=== PATIENT | male | born 1960 | race Two or more races ===

== ENCOUNTER 2018-05-26 19:25 | Observation (INO) | payer BC ==
[~2018-05-26] VITALS: Ht 172.7 cm; Wt 116.6 kg
[~2018-05-26 19:25] MED LIST: DOCU100C28; FENO160T12 PO; LEVO250T7; LIDO15CR; METO50TA6 PO; METR-84; PANT40TA3 PO
[2018-05-26] MEDS ORDERED: ASPIRIN 325 MG TABLET PO ONE (20:00)
[2018-05-26 20:01] LABS: BASO # 0.1 x10^3/uL (0.0-0.2); BASO % 1 % (0-3); EOS # 0.3 x10^3/uL (0.0-0.7); EOS % 3 % (0-3); HEMATOCRIT 43.1 % (39.0-53.0); HEMOGLOBIN 15.3 g/dL (13.0-17.5); LYMPH # 4.7 x10^3/uL (1.0-4.8); LYMPH % 49 % (24-48); MEAN CORPUSCULAR HEMOGLOBIN 32 pg (25-35); MEAN CORPUSCULAR HGB CONC 35 g/dL (31-37); MEAN CORPUSCULAR VOLUME 91 fL (79-100); MONO # 0.7 x10^3/uL (0.0-1.1); MONO % 8 % (0-9); NEUT # 3.7 x10^3uL (1.8-7.7); NEUT % 39 % (31-73); PLATELET COUNT 290 x10^3/uL (140-400); RED BLOOD COUNT 4.75 x10^6/uL (4.30-5.70); RED CELL DISTRIBUTION WIDTH 13.7 % (11.5-14.5); WHITE BLOOD COUNT 9.5 x10^3/uL (4.0-11.0)
[2018-05-26 20:07] LABS: CALCIUM 9.5 mg/dL (8.5-10.1); CREATININE 1.4 mg/dL (0.7-1.3); GFR 52.2; POTASSIUM 3.9 mmol/L (3.5-5.1)
[2018-05-26 20:10] LABS: PROTHROMBIN TIME PATIENT 12.7 SEC (11.7-14.0)
[2018-05-26 20:13] LABS: D-DIMER 0.43 ug/mlFEU (0.00-0.50)
[2018-05-26 20:15] LABS: MAGNESIUM 1.9 mg/dL (1.8-2.4); TOTAL BILIRUBIN 0.3 mg/dL (0.2-1.0); TOTAL PROTEIN 8.2 g/dL (6.4-8.2)
--- NOTE | 2018-05-26 20:25 | PHYS DOC ---
Past Medical History Past Medical History: CAD, GERD, High Cholesterol, Hypertension Past Surgical History: No Surgical History Smoking: Quit Greater Than 1 Year Alcohol Use: None Drug Use: None Adult General Chief Complaint Chief Complaint: Palpitations HPI HPI Patient is a 57-year-old male that presents with episodic squeezing chest pain that started this morning. Patient states the pain is in the center of his chest , the episodes last about 15 minutes, they are alleviated with rest and he denies radiation of the pain. He has not taken any medication for the chest pain today, he does not take a daily aspirin. Patient has a history of hypertension and hypercholesterolemia. Patient has a family history of heart attack in his father, and PE in his mother. Patient has a history of smoking tobacco, quit 20 years ago. At its worst the pain is a 6 out of 10. Patient denies shortness of breath, nausea, vomiting, dizziness, and cough. Heart score 4/5 with history of smoking, hypercholesterolemia, hypertension, family history of heart attack. Patient denies trauma. Review of Systems Review of Systems Constitutional: Denies fever or chills [] Eyes: Denies change in visual acuity, redness, or eye pain [] HENT: Denies nasal congestion or sore throat [] Respiratory: Denies cough or shortness of breath [] Cardiovascular: Reports chest pain and palpitations GI: Denies abdominal pain, nausea, vomiting, or diarrhea [] : Denies dysuria or hematuria [] Musculoskeletal: Denies back pain or joint pain [] Integument: Denies rash or skin lesions [] Neurologic: Denies headache, focal weakness or sensory changes [] Complete systems were reviewed and found to be within normal limits, except as documented in this note. Current Medications Current Medications Current Medications Medications (Trade) Dose Ordered Sig/[facility] Start Time Stop Time Status Last Admin Dose Admin Aspirin (Victoria Aspirin) 325 mg 1X ONCE 05/26/18 20:00 05/26/18 20:01 DC 05/26/18 19:48 325 MG Allergies Allergies Allergies Coded Allergies Type Severity Reaction Last Updated Verified Penicillins Allergy Intermediate 05/26/18 Yes Physical Exam Physical Exam Constitutional: Well developed, well nourished, no acute distress, non-toxic appearance. [] HENT: Normocephalic, atraumatic, nose normal. [] Eyes: Conjunctiva normal, no discharge. [] Neck: Normal range of motion, no tenderness, supple. [] Cardiovascular: Heart rate regular rhythm, no murmur [] Lungs & Thorax: Bilateral breath sounds clear to auscultation [] Abdomen: Bowel sounds normal, soft, no tenderness. [] Skin: Warm, dry, no erythema, no rash. [] Extremities: No tenderness, no cyanosis, no clubbing, ROM intact, no edema. [] Neurologic: Alert and oriented X 3, no focal deficits noted. [] Psychologic: Affect normal, judgement normal, mood normal. [] Current Patient Data Vital Signs Vital Signs Date Time Temp Pulse Resp B/P (MAP) Pulse Ox O2 Delivery O2 Flow Rate FiO2 05/26/18 20:30 73 16 118/81 (93) 97 Room Air 05/26/18 19:35 98.6 98.6 Lab Values Laboratory Tests Test 05/26/18 19:45 White Blood Count 9.5 x10^3/uL (4.0-11.0) Red Blood Count 4.75 x10^6/uL (4.30-5.70) Hemoglobin 15.3 g/dL (13.0-17.5) Hematocrit 43.1 % (39.0-53.0) Mean Corpuscular Volume 91 fL (79-100) Mean Corpuscular Hemoglobin 32 pg (25-35) Mean Corpuscular Hemoglobin Concent 35 g/dL (31-37) Red Cell Distribution Width 13.7 % (11.5-14.5) Platelet Count 290 x10^3/uL (140-400) Neutrophils (%) (Auto) 39 % (31-73) Lymphocytes (%) (Auto) 49 % (24-48) H Monocytes (%) (Auto) 8 % (0-9) Eosinophils (%) (Auto) 3 % (0-3) Basophils (%) (Auto) 1 % (0-3) Neutrophils # (Auto) 3.7 x10^3uL (1.8-7.7) Lymphocytes # (Auto) 4.7 x10^3/uL (1.0-4.8) Monocytes # (Auto) 0.7 x10^3/uL (0.0-1.1) Eosinophils # (Auto) 0.3 x10^3/uL (0.0-0.7) Basophils # (Auto) 0.1 x10^3/uL (0.0-0.2) Prothrombin Time 12.7 SEC (11.7-14.0) Prothrombin Time INR 1.0 (0.8-1.1) PTT 25 SEC (24-38) D-Dimer (Chantelle) 0.43 ug/mlFEU (0.00-0.50) Sodium Level 143 mmol/L (136-145) Potassium Level 3.9 mmol/L (3.5-5.1) Chloride Level 106 mmol/L (98-107) Carbon Dioxide Level 30 mmol/L (21-32) Anion Gap 7 (6-14) Blood Urea Nitrogen 25 mg/dL (8-26) Creatinine 1.4 mg/dL (0.7-1.3) H Estimated GFR (Cockcroft-Gault) 52.2 BUN/Creatinine Ratio 18 (6-20) Glucose Level 95 mg/dL (70-99) Calcium Level 9.5 mg/dL (8.5-10.1) Magnesium Level 1.9 mg/dL (1.8-2.4) Total Bilirubin 0.3 mg/dL (0.2-1.0) Aspartate Amino Transferase (AST) 22 U/L (15-37) Alanine Aminotransferase (ALT) 39 U/L (16-63) Alkaline Phosphatase 61 U/L (46-116) Creatine Kinase 101 U/L (39-308) Creatine Kinase MB (Mass) 0.8 ng/mL (0.0-3.6) Creatine Kinase MB Relative Index 0.8 % (0-4) Troponin I Quantitative < 0.017 ng/mL (0.000-0.055) YV-Sqt-M-Type Natriuretic Peptide 126 pg/mL (0-124) H Total Protein 8.2 g/dL (6.4-8.2) Albumin 4.0 g/dL (3.4-5.0) Albumin/Globulin Ratio 1.0 (1.0-1.7) Lipase 240 U/L (73-393) Laboratory Tests 05/26/18 19:45 Laboratory Tests 05/26/18 19:45 EKG EKG @ 1937 Sinus rhythm at 90 BPM, prolonged SD interval at 212ms, no ST elevation Radiology/Procedures Radiology/Procedures CXR @2114 Chest x-ray without acute process preliminary report by ED physician Course & Med Decision Making Course & Med Decision Making Pertinent Labs and Imaging studies reviewed. (See chart for details) Patient is a 57-year-old male that presented with 1 day of chest pain and palpitations that began this morning. Patient has a history of HTN, hypercholesterolemia, father had a heart attack, and he has a history of smoking. Labs obtained and posted to chart. EKG WNL, no ST elevation. Troponin and D-dimer WNL. Preliminary read of CXR shows no acute process. Heart score of 4. Discussed admission for observation and cardiology evaluation with stress test because of concerning history. Patient requiring admission for further evaluation and treatment. Discussed with Dr. Briggs (hospitalist) who is in agreement with admission. Discussed findings and plan with patient and family, who acknowledge understanding and agreement. Dragon Disclaimer Dragon Disclaimer This electronic medical record was generated, in whole or in part, using a voice recognition dictation system. Departure Departure Impression: Primary Impression: Chest pain Disposition: ADMITTED INPATIENT Admitting Physician: Other (Obizoar) Condition: STABLE Referrals: CAREN RESTREPO MD (PCP) Problem Qualifiers Primary Impression: Chest pain Chest pain type: unspecified Qualified Codes: R07.9 - Chest pain, unspecified APARNA VALVERDE DO May 26, 2018 20:25
[2018-05-26] MEDS ORDERED: IV NORMAL SALINE 1000ML BAG 1,000 ML IV ONE (21:00)
[2018-05-26] MEDS ORDERED: fentaNYL PF VIAL 100 MCG/2 ML VIAL IV PRN (21:15)
[2018-05-26] MEDS ORDERED: ONDANSETRON PF 4 MG/2 ML VIAL. IV PRN (21:15)
--- NOTE | 2018-05-26 21:54 | RAD ---
Exam performed: 2 views of the chest. Indication: Chest pain today Date of Service: 05/26/2018 8:39 PM . Comparison : Two-view chest from 04/10/2008 Findings: PA and lateral radiographs of the chest reveal a normal cardiomediastinal contour. The lungs are clear. No pleural fluid is seen. The visualized osseous structures are unremarkable. Impression: No acute cardiopulmonary process seen. Electronically signed by: Le Vaughan MD (05/26/2018 9:49 PM) [facility]
[2018-05-26 22:32] VITALS: BP 122/77
[2018-05-26] MEDS ORDERED: FINA5TAB4 PO (23:11)
[2018-05-26] MEDS ORDERED: TAMS0.4C2 PO (23:11)
[2018-05-27 03:00] VITALS: BP 105/67
[2018-05-27 05:53] LABS: CHOLESTEROL/HDL RATIO 4.4
--- NOTE | 2018-05-27 07:29 | EKG ---
[facility] [address] [place] [address] Test Date: 2018-05-26 Test Time: 19:37:24 Pat Name: AGNES MARAVILLA Department: Room: Gender: M [employer]: : 1960 Requested By: APARNA VALVERDE Order Number: [id number] Reading MD: Measurements Intervals [place] Rate: 90 P: 40 MI: 212 QRS: 14 QRSD: 78 T: 21 QT: 332 QTc: 410 Interpretive Statements SINUS RHYTHM PROLONGED MI INTERVAL QRS(T) CONTOUR ABNORMALITY CONSIDER ANTEROSEPTAL MYOCARDIAL DAMAGE ABNORMAL ECG RI6.01 No previous ECG available for comparison
[2018-05-27 07:36] VITALS: BP 118/71
--- NOTE | 2018-05-27 08:15 | PDOC2 ---
CARDIOLOGY CONSULT NOTE CHEIF COMPLAINT: CHest pain HPI: Presented with substernal chest pain with pressure lasting 10 minutes for the mostly the morning. He has had associated palpitations. No diaphoresis, n/v. No prior abnormality on prior holter monitoring. No syncope, no LE edema. No exertional dyspnea. Baseline functional capacity NYHA class 1. No severe limitations. He is able to do things like mow the yard and shovel snow. Had flu he thinks 1 month ago. Also recently seen at and apparently advised to obtain a test (unsure what) and he did not due to lack of money. PMHX: 1. BPH 2. HTN 3. Hypertriglyceridemia SOCHX: Remote smoker. No alcohol or illicits. FAMHX: Dad - AL Mother - P.E CURRENT MEDS: Fenofibrate Metoprolol 50mg bid Protonix. Tamsulosin/Finasteride ALLERGIES: Allergies Coded Allergies Type Severity Reaction Last Updated Verified Penicillins Allergy Intermediate 05/26/18 Yes ROS: Negative for 02/18 systems reviewed unless otherwise noted above in HPI. PHYSICAL EXAM: Vital Signs: Vital Signs Date Time Temp Pulse Resp B/P (MAP) Pulse Ox O2 Delivery O2 Flow Rate FiO2 05/27/18 07:36 98.2 66 18 118/71 (87) 98 Room Air 98.2 I & O Intake and Output 05/27/18 07:01 Intake Total 1000 ml Balance 1000 ml Intake Oral 0 ml IV Total 1000 ml # Voids 2 Physical Exam: GEN.: No apparent distress. Alert and oriented. HEENT: Head is normocephalic, atraumatic NECK: Supple. LUNGS: Clear to auscultation. HEART: RRR, distant heart sounds. , S1, S2 present. Peripheral pulses intact ABDOMEN: Soft, nontender. Positive bowel sounds. EXTREMITIES: Without any cyanosis. NEUROLOGIC: Normal speech, normal tone PSYCHIATRIC: Normal affect, normal mood. SKIN: No ulcerations DIAGNOSTIC TESTING: EKG, Trop, BNP wnl. CXR wnl. ASSESSMENT: 1. Atypical chest pain - No findings on EKG/Trop or CXR. 2. Multiple cardiac risk factors including obesity, HTN, DLP, and family history. PLAN: 1. Check echo. will plan for outpt event monitor. 2. Consider outpt stress test. 3. Continue home meds. Pls call with questions. Ok to DC later today after echo KIM BEJARANO MD May 27, 2018 08:15
[2018-05-27] MEDS ORDERED: DOCUSATE SODIUM 100 MG CAPSULE. PO PRN (11:00)
[2018-05-27] MEDS ORDERED: traMADol 50 MG TABLET PO PRN (11:00)
[2018-05-27] MEDS ORDERED: ONDANSETRON PF 4 MG/2 ML VIAL. IV PRN (11:00)
[2018-05-27] MEDS ORDERED: hydrALAZINE 20 MG/ML VIAL. IVP PRN (11:00)
[2018-05-27] MEDS ORDERED: MORPHINE SULFATE 4 MG/ML VIAL. IV PRN (11:00)
[2018-05-27] MEDS ORDERED: ACETAMINOPHEN 325 MG TABLET. PO PRN (11:00)
[2018-05-27 11:15] VITALS: BP 106/71
--- NOTE | 2018-05-27 12:46 | PDOC1 ---
History and Physical Date of Admission Date of Admission 05/27/18 Identification/Chief Complaint Chief Complaint chest pain, palpitation Source Source: Chart review, Patient History of Present Illness History of Present Illness HPI HPI Patient is a 57-year-old male came for chest pain and palpitation yesterday. pt said he was sitting , the felt palpitation, and chest pain, lasting for 10min , 6/10. The pain was dull, no radiation, mild sob and diaphoresis , no N/V. then he had another one time palpitation wo chest pain, then came to ER. no chest pain overniight. CE neg. EKG ok. had GERD, on protonix, but denies feels like GERD. Past Medical History Cardiovascular: HTN Past Surgical History Past Surgical History: No pertinent history Family History Family History: Hypertension Social History Smoke: Quit ALCOHOL: social Drugs: None Current Problem List Problem List Problems Medical Problems: (1) Chest pain Status: Acute Current Medications Current Medications Current Medications Medications (Trade) Dose Ordered Sig/[facility]ini Start Time Stop Time Status Last Admin Dose Admin Acetaminophen (Tylenol) 650 mg PRN Q6HRS PRN 05/27/18 11:00 Aspirin (Victoria Aspirin) 325 mg 1X ONCE 05/26/18 20:00 05/26/18 20:01 DC 05/26/18 19:48 325 MG Docusate Sodium (Colace) 100 mg PRN DAILY PRN 05/27/18 11:00 Fentanyl Citrate (Fentanyl 2ml Vial) 50 mcg PRN Q2HRS PRN 05/26/18 21:15 Hydralazine HCl (Apresoline Inj) 10 mg PRN Q4HRS PRN 05/27/18 11:00 Morphine Sulfate (Morphine Sulfate) 2 mg PRN Q2HR PRN 05/27/18 11:00 Ondansetron HCl (Zofran) 4 mg PRN Q6HRS PRN 05/27/18 11:00 Sodium Chloride 1,000 ml @ 1,000 mls/hr 1X ONCE 05/26/18 21:00 05/26/18 21:59 DC 05/26/18 19:49 1,000 MLS/HR Tramadol HCl (Ultram) 50 mg PRN Q6HRS PRN 05/27/18 11:00 Allergies Allergies Allergies Coded Allergies Type Severity Reaction Last Updated Verified Penicillins Allergy Intermediate 05/26/18 Yes ROS Review of System CONSTITUTIONAL: No fever or chills EYES: No recent changes SKIN: No rash or itching CARDIOVASCULAR: No chest pain, syncope, palpitations, or edema RESPIRATORY: No SOB or cough GASTROINTESTINAL: No nausea, vomiting or abdominal pain NEUROLOGICAL: No headaches or weakness ENDOCRINE: No cold or heat intolerance GENITOURINARY: No urgency or frequency of urination MUSCULOSKELETAL: No back pain or joint pain LYMPHATICS: No enlarged lymph nodes PSYCHIATRIC: No anxiety or depression Physical Exam Physical Exam GEN.: No apparent distress. Alert and oriented. HEENT: Head is normocephalic, atraumatic NECK: Supple. LUNGS: Clear to auscultation. HEART: RRR, S1, S2 present. Peripheral pulses intact ABDOMEN: Soft, Positive bowel sounds. mild lower abd tenderness. EXTREMITIES: Without any cyanosis. NEUROLOGIC: Normal speech, normal tone PSYCHIATRIC: Normal affect, normal mood. SKIN: No ulcerations Vitals Vitals Vital Signs Date Time Temp Pulse Resp B/P (MAP) Pulse Ox O2 Delivery O2 Flow Rate FiO2 05/27/18 11:15 98.1 51 18 106/71 (83) 99 Room Air 98.1 Labs Labs Laboratory Tests Test 05/26/18 19:45 05/27/18 02:00 05/27/18 04:45 White Blood Count 9.5 x10^3/uL (4.0-11.0) Red Blood Count 4.75 x10^6/uL (4.30-5.70) Hemoglobin 15.3 g/dL (13.0-17.5) Hematocrit 43.1 % (39.0-53.0) Mean Corpuscular Volume 91 fL (79-100) Mean Corpuscular Hemoglobin 32 pg (25-35) Mean Corpuscular Hemoglobin Concent 35 g/dL (31-37) Red Cell Distribution Width 13.7 % (11.5-14.5) Platelet Count 290 x10^3/uL (140-400) Neutrophils (%) (Auto) 39 % (31-73) Lymphocytes (%) (Auto) 49 % (24-48) Monocytes (%) (Auto) 8 % (0-9) Eosinophils (%) (Auto) 3 % (0-3) Basophils (%) (Auto) 1 % (0-3) Neutrophils # (Auto) 3.7 x10^3uL (1.8-7.7) Lymphocytes # (Auto) 4.7 x10^3/uL (1.0-4.8) Monocytes # (Auto) 0.7 x10^3/uL (0.0-1.1) Eosinophils # (Auto) 0.3 x10^3/uL (0.0-0.7) Basophils # (Auto) 0.1 x10^3/uL (0.0-0.2) Prothrombin Time 12.7 SEC (11.7-14.0) Prothromb Time International Ratio 1.0 (0.8-1.1) Activated Partial Thromboplast Time 25 SEC (24-38) D-Dimer (Chantelle) 0.43 ug/mlFEU (0.00-0.50) Sodium Level 143 mmol/L (136-145) Potassium Level 3.9 mmol/L (3.5-5.1) Chloride Level 106 mmol/L (98-107) Carbon Dioxide Level 30 mmol/L (21-32) Anion Gap 7 (6-14) Blood Urea Nitrogen 25 mg/dL (8-26) Creatinine 1.4 mg/dL (0.7-1.3) Estimated GFR (Cockcroft-Gault) 52.2 BUN/Creatinine Ratio 18 (6-20) Glucose Level 95 mg/dL (70-99) Calcium Level 9.5 mg/dL (8.5-10.1) Magnesium Level 1.9 mg/dL (1.8-2.4) Total Bilirubin 0.3 mg/dL (0.2-1.0) Aspartate Amino Transf (AST/SGOT) 22 U/L (15-37) Alanine Aminotransferase (ALT/SGPT) 39 U/L (16-63) Alkaline Phosphatase 61 U/L (46-116) Creatine Kinase 101 U/L (39-308) Creatine Kinase MB (Mass) 0.8 ng/mL (0.0-3.6) Creatine Kinase MB Relative Index 0.8 % (0-4) Troponin I Quantitative < 0.017 ng/mL (0.000-0.055) < 0.017 ng/mL (0.000-0.055) 0.020 ng/mL (0.000-0.055) XK-Bcf-C-Type Natriuretic Peptide 126 pg/mL (0-124) Total Protein 8.2 g/dL (6.4-8.2) Albumin 4.0 g/dL (3.4-5.0) Albumin/Globulin Ratio 1.0 (1.0-1.7) Lipase 240 U/L (73-393) Triglycerides Level 156 mg/dL (0-150) Cholesterol Level 158 mg/dL (0-200) LDL Cholesterol, Calculated 91 mg/dL (0-100) VLDL Cholesterol, Calculated 31 mg/dL (0-40) Non-HDL Cholesterol Calculated 122 mg/dL (0-129) HDL Cholesterol 36 mg/dL (40-60) Cholesterol/HDL Ratio 4.4 Laboratory Tests Test 05/26/18 19:45 05/27/18 02:00 05/27/18 04:45 White Blood Count 9.5 x10^3/uL (4.0-11.0) Red Blood Count 4.75 x10^6/uL (4.30-5.70) Hemoglobin 15.3 g/dL (13.0-17.5) Hematocrit 43.1 % (39.0-53.0) Mean Corpuscular Volume 91 fL (79-100) Mean Corpuscular Hemoglobin 32 pg (25-35) Mean Corpuscular Hemoglobin Concent 35 g/dL (31-37) Red Cell Distribution Width 13.7 % (11.5-14.5) Platelet Count 290 x10^3/uL (140-400) Neutrophils (%) (Auto) 39 % (31-73) Lymphocytes (%) (Auto) 49 % (24-48) Monocytes (%) (Auto) 8 % (0-9) Eosinophils (%) (Auto) 3 % (0-3) Basophils (%) (Auto) 1 % (0-3) Neutrophils # (Auto) 3.7 x10^3uL (1.8-7.7) Lymphocytes # (Auto) 4.7 x10^3/uL (1.0-4.8) Monocytes # (Auto) 0.7 x10^3/uL (0.0-1.1) Eosinophils # (Auto) 0.3 x10^3/uL (0.0-0.7) Basophils # (Auto) 0.1 x10^3/uL (0.0-0.2) Prothrombin Time 12.7 SEC (11.7-14.0) Prothromb Time International Ratio 1.0 (0.8-1.1) Activated Partial Thromboplast Time 25 SEC (24-38) D-Dimer (Chantelle) 0.43 ug/mlFEU (0.00-0.50) Sodium Level 143 mmol/L (136-145) Potassium Level 3.9 mmol/L (3.5-5.1) Chloride Level 106 mmol/L (98-107) Carbon Dioxide Level 30 mmol/L (21-32) Anion Gap 7 (6-14) Blood Urea Nitrogen 25 mg/dL (8-26) Creatinine 1.4 mg/dL (0.7-1.3) Estimated GFR (Cockcroft-Gault) 52.2 BUN/Creatinine Ratio 18 (6-20) Glucose Level 95 mg/dL (70-99) Calcium Level 9.5 mg/dL (8.5-10.1) Magnesium Level 1.9 mg/dL (1.8-2.4) Total Bilirubin 0.3 mg/dL (0.2-1.0) Aspartate Amino Transf (AST/SGOT) 22 U/L (15-37) Alanine Aminotransferase (ALT/SGPT) 39 U/L (16-63) Alkaline Phosphatase 61 U/L (46-116) Creatine Kinase 101 U/L (39-308) Creatine Kinase MB (Mass) 0.8 ng/mL (0.0-3.6) Creatine Kinase MB Relative Index 0.8 % (0-4) Troponin I Quantitative < 0.017 ng/mL (0.000-0.055) < 0.017 ng/mL (0.000-0.055) 0.020 ng/mL (0.000-0.055) EA-Feq-K-Type Natriuretic Peptide 126 pg/mL (0-124) Total Protein 8.2 g/dL (6.4-8.2) Albumin 4.0 g/dL (3.4-5.0) Albumin/Globulin Ratio 1.0 (1.0-1.7) Lipase 240 U/L (73-393) Triglycerides Level 156 mg/dL (0-150) Cholesterol Level 158 mg/dL (0-200) LDL Cholesterol, Calculated 91 mg/dL (0-100) VLDL Cholesterol, Calculated 31 mg/dL (0-40) Non-HDL Cholesterol Calculated 122 mg/dL (0-129) HDL Cholesterol 36 mg/dL (40-60) Cholesterol/HDL Ratio 4.4 VTE Prophylaxis Ordered VTE Prophylaxis Devices: Yes VTE Pharmacological Prophylaxi: Yes Assessment/Plan Assessment/Plan chest pain, possible 2/2 palpitation, but no arrythmia catched, then could be anxiety HTN GERD morbid obesity BMI 39 plan: fu with card, echo/MPI today. if neg, may go home. asked nurse and pt to talk to card to see if need holter monitor. cont home meds KEAGAN HEREDIA MD May 27, 2018 12:46
[2018-05-27] MEDS ORDERED: FINASTERIDE 5 MG TABLET. PO SCH (13:00)
--- NOTE | 2018-05-27 13:55 | PDOC3 ---
Discharge Summary [facility] Date of Admission: May 26, 2018 Discharge Date: May 27, 2018 Admitting Diagnosis chest pain, possible 2/2 palpitation, but no arrythmia caught in hosp, then could be anxiety HTN GERD morbid obesity BMI 39 Final Diagnosis Problems Medical Problems: (1) Chest pain Status: Acute CONSULTS card Brief Hospital Course Patient is a 57-year-old male came for chest pain and palpitation yesterday. pt said he was sitting , the felt palpitation, and chest pain, lasting for 10min , 6/10. The pain was dull, no radiation, mild sob and diaphoresis , no N/V. then he had another one time palpitation wo chest pain, then came to ER. no chest pain overniight. CE neg. EKG ok. had GERD, on protonix, but denies feels like GERD. echo pending. if ok , can dc as per card. may need a monitor, defer to card. dc time 35min. Disposition home CONDITION AT DISCHARGE: Improved Scheduled Fenofibrate (Lofibra), 160 MG PO DAILY, (Reported) Finasteride (Finasteride), 5 MG PO DAILY, (Reported) Metoprolol Tartrate (Metoprolol Tartrate), 50 MG PO BID, (Reported) Pantoprazole Sodium (Protonix), 40 MG PO DAILYAC, (Reported) Tamsulosin Hcl (Tamsulosin Hcl), 0.4 MG PO QHS, (Reported) Discontinued Medications Docusate Sodium (Docusate Sodium), (Reported) Levofloxacin (Levofloxacin), (Reported) Lidocaine (Lmx 4), (Reported) Metronidazole (Metronidazole), (Reported) KEAGAN HEREDIA MD May 27, 2018 13:55
[2018-05-27 14:22] VITALS: BP 121/76
--- NOTE | 2018-05-27 16:23 | NUR ---
Discharge Note: AGNES MARAVILLA [facility] Discharge instructions and discharge home medications reviewed with Patient and a copy given. All questions have been answered and understanding verbalized. The following instructions and handouts were given: cardiac diet and retail asset protection specialist f/u Discontinued lines and drains: #20 L AC Patient discharged to home with spouse via POV
[2018-05-27] MEDS ORDERED: TAMSULOSIN 0.4 MG CAP.ER.24H. PO SCH (21:00)
[2018-05-27] MEDS ORDERED: METOPROLOL TART IMMED RELEASE 50 MG TABLET. PO SCH (21:00)
[2018-05-28] MEDS ORDERED: PANTOPRAZOLE 40 MG TABLET.DR. PO SCH (07:30)
[2018-05-28] MEDS ORDERED: FENOFIBRATE,MICRONIZED 134 MG CAPSULE PO SCH (09:00)
--- NOTE | 2018-05-28 10:09 | CARD ---
MR#: [id number] Date of Study: 05/27/2018 Ordering Physician: KIM BEJARANO, Referring Physician: STEPHON SILVEIRA, Tech: Gisell Jenkins, [facility] APPROVED REPORT EXAM: Two-dimensional and M-mode echocardiogram with Doppler and color Doppler. Other Information Quality : AverageHR: 60bpm Rhythm : NSRTechnically limited study due to body habitus. INDICATION Chest Pain 2D DIMENSIONS RVDd3.7 (2.9-3.5cm)Left Atrium(2D)4.4 (1.6-4.0cm) IVSd1.0 (0.7-1.1cm)Aortic Root(2D)3.5 (2.0-3.7cm) LVDd4.6 (3.9-5.9cm)LVOT Diameter2.3 (1.8-2.4cm) PWd0.9 (0.7-1.1cm)LVDs2.5 (2.5-4.0cm) FS (%) 45.9 %SV74.9 ml LVEF(%)77.3 (>50%) Aortic Valve AoV Peak Lico.150.8cm/sAoV VTI30.2cm AO Peak GR.9.1mmHgLVOT Peak Lico.113.2cm/s AO Mean GR.5mmHgAVA (VMAX)3.09cm2 ALAINA (VTI)3.00cm2 Mitral Valve MV E Odtgtpfx63.1cm/sMV DECEL [id number] MV A Ajepatsv63.6cm/sE/A Ratio1.0 MV A Gekmxfxp131pg Pulmonary Valve PV Peak Eqtgpfat51.7cm/s LEFT VENTRICLE The left ventricle is normal size. There is normal left ventricular wall thickness. The left ventricu lar systolic function is normal and the ejection fraction is within normal range. The Ejection Fracti on is 65-70%. There is normal LV segmental wall motion. Transmitral Doppler flow pattern is Grade II- pseudonormal filling dynamics. RIGHT VENTRICLE The right ventricle is normal size. There is normal right ventricular wall thickness. The right ventr icular systolic function is normal. ATRIA The left atrium is mildly dilated. The right atrium is mildly dilated. The interatrial septum is inta ct with no evidence for an atrial septal defect or patent foramen ovale as noted on 2-D or Doppler im aging. AORTIC VALVE The aortic valve is normal in structure and function. The aortic valve is trileaflet. Doppler and Col or Flow revealed trace aortic regurgitation. There is no significant aortic valvular stenosis. MITRAL VALVE The mitral valve is normal in structure and function. There is no evidence of mitral valve prolapse. There is no mitral valve stenosis. Doppler and Color Flow revealed no mitral valve regurgitation note d. TRICUSPID VALVE The tricuspid valve is normal in structure and function. Doppler and Color Flow revealed trace tricus pid regurgitation. There is no tricuspid valve prolapse or vegetation. There is no tricuspid valve st enosis. PULMONIC VALVE Pulmonic valve not well visualized. GREAT VESSELS The aortic root is borderline enlarged. The ascending aorta is normal in size. PERICARDIAL EFFUSION There is no evidence of significant pericardial effusion. Critical Notification Critical Value: No <Conclusion> The left ventricular systolic function is normal and the ejection fraction is within normal range. Th e Ejection Fraction is 65-70%. There is normal LV segmental wall motion. Signed by : Kim Bejarano, Electronically Approved : 05/28/2018 10:07:32
== END 2018-05-27 16:35 | disposition home or self-care (01) ==
LOC: ER 19:25 → 2 SOUTH 20:45
PROVIDERS: ADMIT Hospitalist; ATTEND Hospitalist
DX: R07.89 Other chest pain (principal); I10 Essential (primary) hypertension; K21.9 Gastro-esophageal reflux disease without esophagitis; I25.10 Atherosclerotic heart disease of native coronary artery without angina pectoris; E78.00 Pure hypercholesterolemia, unspecified; E66.01 Morbid (severe) obesity due to excess calories; Z68.39 Body mass index [BMI] 39.0-39.9, adult; Z87.891 Personal history of nicotine dependence; Z82.49 Family history of ischemic heart disease and other diseases of the circulatory system
CPT/HCPCS: 36415; 71046; 80053; 80061; 82553; 83690; 83735; 83880; 84484; 85025; 85379; 85610; 85730; 93005; 93306; 99284; G0378; J7030; G0379

== ENCOUNTER 2018-08-09 10:13 | Emergency (ER) | payer BC ==
[~2018-08-09] VITALS: Ht 172.7 cm; Wt 117.9 kg
[~2018-08-09 10:13] MED LIST changes: +FINA5TAB4 PO; +METR-34; -METR-84; +TAMS0.4C2 PO
[2018-08-09 10:38] LABS: BASO % 1 % (0-3); EOS # 0.2 x10^3/uL (0.0-0.7); EOS % 3 % (0-3); HEMATOCRIT 42.5 % (39.0-53.0); HEMOGLOBIN 14.5 g/dL (13.0-17.5); LYMPH # 3.1 x10^3/uL (1.0-4.8); LYMPH % 46 % (24-48); MEAN CORPUSCULAR HEMOGLOBIN 31 pg (25-35); MEAN CORPUSCULAR HGB CONC 34 g/dL (31-37); MEAN CORPUSCULAR VOLUME 90 fL (79-100); MONO # 0.5 x10^3/uL (0.0-1.1); MONO % 7 % (0-9); NEUT % 44 % (31-73); PLATELET COUNT 254 x10^3/uL (140-400); RED BLOOD COUNT 4.72 x10^6/uL (4.30-5.70); RED CELL DISTRIBUTION WIDTH 13.7 % (11.5-14.5); WHITE BLOOD COUNT 6.9 x10^3/uL (4.0-11.0)
[2018-08-09 10:48] LABS: CALCIUM 9.2 mg/dL (8.5-10.1); CREATININE 1.3 mg/dL (0.7-1.3); GFR 56.9; POTASSIUM 3.9 mmol/L (3.5-5.1)
--- NOTE | 2018-08-09 10:49 | RAD ---
CHEST PA LATERAL History: PALPITATIONS, CHEST TIGHTNESS THIS AM. Comparison with May 26, 2018. The heart size is not enlarged. No evidence of pneumothorax, pleural effusion or focal airspace consolidation. IMPRESSION: No acute infiltrate. Electronically signed by: Deandre Morales MD (08/09/2018 10:46 AM) [id number]
[2018-08-09 10:55] LABS: MAGNESIUM 1.8 mg/dL (1.8-2.4); TOTAL BILIRUBIN 0.5 mg/dL (0.2-1.0); TOTAL PROTEIN 7.9 g/dL (6.4-8.2)
--- NOTE | 2018-08-09 12:12 | PHYS DOC ---
Past Medical History Past Medical History: CAD, GERD, High Cholesterol, Hypertension Past Surgical History: Other Additional Past Surgical Histo: LEFT KNEE Alcohol Use: None Drug Use: None Adult General Chief Complaint Chief Complaint: Palpitations HPI HPI Patient is a 57 year old male who brought in by EMS because of palpitation. Patient states he felt sudden onset of palpitations with fast heart beat while tried to change his cloth at home. Patient complaining of left lower chest aching pain at the same time and rated his pain 4/10. Patient complaining of breath, dizziness and near syncope without nausea, focal neuro deficit, fever and chills. Patient states the episode last more than 10 minutes and denies chest pain or dizziness at arrival to ER. Patient treated with 224 mg of aspirin by EMS. Patient states he had the same episodes of fast heartbeat in May and was seen in this emergency room and follow up with a adult education teacher without abnormal finding. Patient denies having any medical problem except for hypertension and denies using drugs or alcohol or smoking cigarettes but drinks plenty of soda. Review of Systems Review of Systems Constitutional: Denies fever or chills [] Eyes: Denies change in visual acuity, redness, or eye pain [] HENT: Denies nasal congestion or sore throat [] Respiratory: Denies cough or shortness of breath [] Cardiovascular: No additional information not addressed in HPI [] GI: Denies abdominal pain, nausea, vomiting, bloody stools or diarrhea [] : Denies dysuria or hematuria [] Musculoskeletal: Denies back pain or joint pain [] Integument: Denies rash or skin lesions [] Neurologic: Denies headache, focal weakness or sensory changes [] Endocrine: Denies polyuria or polydipsia [] All other systems were reviewed and found to be within normal limits, except as documented in this note. Allergies Allergies Allergies Coded Allergies Type Severity Reaction Last Updated Verified Penicillins Allergy Intermediate 05/26/18 Yes Physical Exam Physical Exam Constitutional: Well developed, well nourished, no acute distress, non-toxic appearance. [] HENT: Normocephalic, atraumatic, bilateral external ears normal, oropharynx moist, no oral exudates, nose normal. [] Eyes: PERRLA, EOMI, conjunctiva normal, no discharge. [] Neck: Normal range of motion, no tenderness, supple, no stridor. [] Cardiovascular:Heart rate regular rhythm, no murmur [] Lungs & Thorax: Bilateral breath sounds clear to auscultation [] Abdomen: Bowel sounds normal, soft, no tenderness, no masses, no pulsatile masses. [] Skin: Warm, dry, no erythema, no rash. [] Back: No tenderness, no CVA tenderness. [] Extremities: No tenderness, no cyanosis, no clubbing, ROM intact, no edema. [] Neurologic: Alert and oriented X 3, normal motor function, normal sensory function, no focal deficits noted. [] Psychologic: Affect normal, judgement normal, mood normal. [] Current Patient Data Vital Signs Vital Signs Date Time Temp Pulse Resp B/P (MAP) Pulse Ox O2 Delivery O2 Flow Rate FiO2 08/09/18 10:13 98.3 70 11 130/83 (99) 97 Room Air 98.3 Lab Values Laboratory Tests Test 08/09/18 10:30 White Blood Count 6.9 x10^3/uL (4.0-11.0) Red Blood Count 4.72 x10^6/uL (4.30-5.70) Hemoglobin 14.5 g/dL (13.0-17.5) Hematocrit 42.5 % (39.0-53.0) Mean Corpuscular Volume 90 fL (79-100) Mean Corpuscular Hemoglobin 31 pg (25-35) Mean Corpuscular Hemoglobin Concent 34 g/dL (31-37) Red Cell Distribution Width 13.7 % (11.5-14.5) Platelet Count 254 x10^3/uL (140-400) Neutrophils (%) (Auto) 44 % (31-73) Lymphocytes (%) (Auto) 46 % (24-48) Monocytes (%) (Auto) 7 % (0-9) Eosinophils (%) (Auto) 3 % (0-3) Basophils (%) (Auto) 1 % (0-3) Neutrophils # (Auto) 3.0 x10^3uL (1.8-7.7) Lymphocytes # (Auto) 3.1 x10^3/uL (1.0-4.8) Monocytes # (Auto) 0.5 x10^3/uL (0.0-1.1) Eosinophils # (Auto) 0.2 x10^3/uL (0.0-0.7) Basophils # (Auto) 0.0 x10^3/uL (0.0-0.2) D-Dimer (Chantelle) < 0.27 ug/mlFEU Sodium Level 142 mmol/L (136-145) Potassium Level 3.9 mmol/L (3.5-5.1) Chloride Level 104 mmol/L (98-107) Carbon Dioxide Level 27 mmol/L (21-32) Anion Gap 11 (6-14) Blood Urea Nitrogen 26 mg/dL (8-26) Creatinine 1.3 mg/dL (0.7-1.3) Estimated GFR (Cockcroft-Gault) 56.9 BUN/Creatinine Ratio 20 (6-20) Glucose Level 98 mg/dL (70-99) Calcium Level 9.2 mg/dL (8.5-10.1) Magnesium Level 1.8 mg/dL (1.8-2.4) Total Bilirubin 0.5 mg/dL (0.2-1.0) Aspartate Amino Transferase (AST) 23 U/L (15-37) Alanine Aminotransferase (ALT) 39 U/L (16-63) Alkaline Phosphatase 57 U/L (46-116) Creatine Kinase 101 U/L (39-308) Troponin I Quantitative < 0.017 ng/mL (0.000-0.055) DX-Ytu-N-Type Natriuretic Peptide 27 pg/mL (0-124) Total Protein 7.9 g/dL (6.4-8.2) Albumin 4.0 g/dL (3.4-5.0) Albumin/Globulin Ratio 1.0 (1.0-1.7) Lipase 220 U/L (73-393) Thyroid Stimulating Hormone (TSH) 2.014 uIU/mL (0.358-3.74) Laboratory Tests 08/09/18 10:30 Laboratory Tests 08/09/18 10:30 EKG EKG EKG interpreted by me. EKG at 1040 showed normal sinus rhythm at rate of 65, normal TN and QT intervals, no acute ST and T-wave abnormalities. Radiology/Procedures Radiology/Procedures [facility] [address] [place], [place] [id number] IMAGING REPORT Signed PATIENT: AGNES MARAVILLA ACCOUNT: [id number] : 1960 LOCATION: ER AGE: 57 SEX: M EXAM STATUS: REG ER ORD. PHYSICIAN: MELINA CHRISTIAN MD REASON: palpitation PROCEDURE: CHEST PA & LATERAL CHEST PA LATERAL History: PALPITATIONS, CHEST TIGHTNESS THIS AM. Comparison with May 26, 2018. The heart size is not enlarged. No evidence of pneumothorax, pleural effusion or focal airspace consolidation. IMPRESSION: No acute infiltrate. Electronically signed by: Deandre Morales MD (08/09/2018 10:46 AM) [id number] DICTATED and SIGNED BY: DEANDRE MORALES MD DATE: 08/09/18 1046 Course & Med Decision Making Course & Med Decision Making Pertinent Labs and Imaging studies reviewed. (See chart for details) Evaluation of patient in ER showed 57-year-old male patient brought in by EMS because of palpitation that resolved at arrival to ER. Patient had unremarkable physical exam and labs and EKG and chest x-ray. The same episode a few months ago with negative cardiac evaluation. Patient was was to follow-up with his primary care physician for possible heart multiple evaluation. Patient also complaining of episodes of shortness of breath while sleeping and was informed about possible sleep apnea and needs to follow up with his primary care physician. Dragon Disclaimer Dragon Disclaimer This electronic medical record was generated, in whole or in part, using a voice recognition dictation system. Departure Departure Impression: Primary Impression: Palpitation Disposition: HOME, SELF-CARE (at 1210) Condition: IMPROVED Referrals: JAMES BERMAN (PCP) Patient Instructions: Palpitations Additional Instructions: Avoid of drinking caffeine Return to ER if not getting better Follow-up with your primary care physician for possible Holter monitor for evaluation of episodes of palpitation and possible sleep apnea MELINA CHRISTIAN MD Aug 09, 2018 12:12
[2018-08-09 12:30] VITALS: BP 135/87
--- NOTE | 2018-08-09 12:41 | EKG ---
[facility] [address] [place] [address] Test Date: 2018-08-09 Test Time: 10:14:56 Pat Name: AGNES MARAVILLA Department: Room: Gender: M Head Up Operator: : 1960 Requested By: MELINA CHRISTIAN Order Number: [id number] Reading MD: Rene Martin MD Measurements Intervals [place] Rate: 65 P: 34 [place]: 206 QRS: 12 QRSD: 80 T: 13 QT: 378 QTc: 394 Interpretive Statements SINUS RHYTHM NON-SPECIFIC ST/T CHANGES Electronically Signed On 08-09-2018 14:31:42 CDT by Rene Martin MD
== END 2018-08-09 12:38 | disposition home or self-care (01) ==
LOC: ER 10:13
DX: R00.2 Palpitations (principal); I10 Essential (primary) hypertension; R42 Dizziness and giddiness; R55 Syncope and collapse; I25.10 Atherosclerotic heart disease of native coronary artery without angina pectoris; K21.9 Gastro-esophageal reflux disease without esophagitis; E78.00 Pure hypercholesterolemia, unspecified; Z88.0 Allergy status to penicillin
CPT/HCPCS: 36415; 71046; 80053; 82550; 83690; 83735; 83880; 84443; 84484; 85025; 85379; 93005; 99284-25

== ENCOUNTER → 2019-02-04 | Outpatient (CLI) | payer OTHER ==
[~2019-02-04] MED LIST changes: -PANT40TA3 PO; +PANT40TA77 PO
--- NOTE | 2019-02-05 09:41 | KCIC ---
MRI of the lumbar spine without contrast 02/04/2019 CLINICAL HISTORY: Low back pain which radiates down the left leg. TECHNIQUE: Unenhanced T1-weighted and T2-weighted sagittal and axial and inversion recovery sagittal images the lumbar spine were obtained. FINDINGS: Very mild S-shaped curvature of the thoracolumbar spine is seen. Degenerative signal changes and loss of height are seen involving the L4-5 and L5-S1 discs. Degenerative signal changes are seen within the marrow surrounding these discs. Hemangiomas are seen involving the L1, L4 and S1 vertebral bodies. These measure 1 to 2.7 cm in size. The conus medullaris is normal morphology, position, and signal characteristics. At the L1-2, L2-3 and L3-4 disc spaces there are minimal to mild generalized disc bulges. Degenerative changes are seen involving the facet joints bilaterally. There is mild ligamentum flavum hypertrophy bilaterally. These findings when combined do not result in significant central spinal canal or neural foraminal stenosis. At the L4-5 disc space there is a mild generalized disc bulge. Superimposed on this disc bulge is a central/left paracentral focal disc protrusion. This measures 4 mm in AP diameter. Degenerative changes are seen involving the facet joints bilaterally. There is mild ligamentum flavum hypertrophy bilaterally. There is prominence of the posterior epidural fat. These findings when combined result in mild to moderate left greater than right central spinal canal stenosis. The disc protrusion displaces and may impinge upon the left L5 nerve root within the left lateral aspect of the central spinal canal. No neural foraminal stenosis is seen. At the L5-S1 disc space there is a mild to moderate generalized disc bulge. This is eccentric to the left. Degenerative changes are seen involving the facet joints bilaterally. There is mild ligamentum flavum hypertrophy bilaterally. These findings when combined do not result in significant central spinal canal or neural foraminal stenosis. IMPRESSION: The changes of degenerative disc disease are seen throughout the lumbar spine. These findings result in mild to moderate left greater than right central spinal canal stenosis at L4-5. No neural foraminal stenosis is seen. At the L4-5 disc space a central/left paracentral focal disc protrusion is seen. This displaces and may impinge upon the left L5 nerve root within the left lateral aspect of the central spinal canal. Electronically signed by: Emerson Pelayo MD (02/05/2019 9:38 AM) [id number]
== END | disposition home or self-care (01) ==
LOC: KCIC MRI 17:04
PROVIDERS: ATTEND Physical Medicine & Rehabilitation Pain Medicine
DX: M51.16 Intervertebral disc disorders with radiculopathy, lumbar region (principal); I10 Essential (primary) hypertension
CPT/HCPCS: 72148